=== PATIENT | female | born 1960 | race Caucasian/White ===

== ENCOUNTER → 2017-07-10 15:36 | Outpatient (CLI) | payer OTHER, SELFPAY ==
--- NOTE | 2017-07-10 | COLBX_PTH ---
PAT[id number] AGE/SX: 64/F ROOM: RE07/10/[address]: Dr. Artie Benitez MD : 1960 BED: DIS: SPEC #: [id number] RECD: 07/10/17 15:24 STATUS: CARL MARGARET #: [id number] BETI: 07/10/17 00:[address]: Artie Benitez DEPT: SURGICAL PATHOLOGY RECD BY: Donato Velázquez ENTERED: 07/11/17 09:17 SP TYPE: COLON BX OTHR DR: No [facility] Tissues: A - Ileum, NOS B - COLON BIOPSY Procedures: Surgery Specimen Level IV HEADER OPERATION: Colonoscopy with biopsies PRE-OP DIAGNOSIS: Diarrhea/chronic, history of polyps TISSUE SUBMITTED: A. Ileum biopsies, rule out Crohn?s, B. Right and left colon biopsies, rule out microscopic colitis MICROSCOPIC DIAGNOSIS A. Ileum, biopsy: No pathologic change. B. Right and left colon, biopsy: No pathologic change. No evidence of colitis. AM:ginger 07/12/17 COMMENT A. Prominent benign appearing lymphoid aggregates are present. MICROSCOPIC DESCRIPTION Slides are reviewed. GROSS DESCRIPTION A - Received in fixative is one container labeled with the patient's name and designated ileum biopsies. The specimen consists of multiple minute irregular fragments of light green soft tissue that in aggregate measure 0.6 x 0.3 x 0.2 cm. The specimen is totally submitted in one cassette. B - Received in fixative is one container labeled with the patient's name and designated right and left colon biopsies. The specimen consists of multiple irregular fragments of light green soft tissue that in aggregate measure 1.6 x 0.4 x 0.2 cm. The specimen is totally submitted in one cassette. / RY:ginger 07/11/17 TC:5 CPT: 46629 x2
== END ==
PROVIDERS: Visit Provider Internal Medicine Gastroenterology
DX: R19.7 Diarrhea, unspecified (principal); Z86.010 Personal history of colon polyps
CPT/HCPCS: 88305